=== PATIENT | female | born 1955 | race African-American/Black ===

== ENCOUNTER 2018-10-31 22:30 | Emergency (ER) | payer MEDICARE ==
[~2018-10-31] VITALS: Ht 157.5 cm; Wt 71.0 kg
[2018-11-01 00:58] LABS: BASOPHILS % 0.6 % (0.0-2.0); EOSINOPHILS % 1.9 % (0.0-5.0); HEMATOCRIT. 29.5 % (36.0-48.0); HEMOGLOBIN. 9.3 g/dL (12.0-16.0); LYMPHOCYTES % 17.4 % (20.0-50.0); MEAN CORPUSCULAR HEMOGLOBIN 20.8 pg (28.0-32.0); MEAN CORPUSCULAR VOLUME 65.7 fL (81.0-99.0); MEAN PLATELET VOLUME 8.2 fl (7.4-10.4); MONOCYTES % 7.2 % (2.0-8.0); NEUTROPHILS % 72.9 % (40.0-76.0); PLATELET 494 x1000/uL (130-400); RED BLOOD CELL COUNT 4.49 mill/uL (4.2-5.4); RED CELL DISTRIBUTION WIDTH 18.2 % (11.6-14.6)
[2018-11-01 01:03] LABS: CHLORIDE 107 mEq/L (98-107)
[2018-11-01 01:06] LABS: CLARITY URINE CLOUDY (CLEAR); COLOR URINE YELLOW (YELLOW); KETONES URINE TRACE (NEGATIVE); LEUKOCYTE ESTERASE URINE TRACE (NEGATIVE); NITRITE URINE NEGATIVE (NEGATIVE); OCCULT BLOOD URINE NEGATIVE (NEGATIVE); PH URINE 5.5 (4.5-8.0); PROTEIN URINE NEGATIVE (NEGATIVE); SPECIFIC GRAVITY URINE 1.036 (1.005-1.030)
[2018-11-01 02:39] VITALS: BP 176/89
[2018-11-01 03:11] LABS: PLATELET ESTIMATE INCREASED
== END 2018-11-01 03:07 | disposition home or self-care (01) ==
LOC: ER 22:30
DX: R55 Syncope and collapse (principal); S09.8XXA Other specified injuries of head, initial encounter; D50.9 Iron deficiency anemia, unspecified; I10 Essential (primary) hypertension; F17.210 Nicotine dependence, cigarettes, uncomplicated; R79.89 Other specified abnormal findings of blood chemistry; Z88.6 Allergy status to analgesic agent; Z88.2 Allergy status to sulfonamides; Z90.49 Acquired absence of other specified parts of digestive tract; W01.0XXA Fall on same level from slipping, tripping and stumbling without subsequent striking against object, initial encounter; Y93.89 Activity, other specified; Y92.480 Sidewalk as the place of occurrence of the external cause
CPT/HCPCS: 36415; 71045; 82962; 83880; 84484; 93005; 99284

== ENCOUNTER 2019-01-13 12:41 | Emergency (ER) | payer MEDICARE ==
[~2019-01-13] VITALS: Ht 167.6 cm; Wt 70.0 kg
[2019-01-13] MEDS ORDERED: METHYLPREDNISOLONE SOD SUCC 125 MG/2 ML VIAL IM ONE (13:30)
[2019-01-13 14:15] VITALS: BP 150/83
== END 2019-01-13 14:25 | disposition home or self-care (01) ==
LOC: ER 12:41
DX: R21 Rash and other nonspecific skin eruption (principal); I10 Essential (primary) hypertension; F17.200 Nicotine dependence, unspecified, uncomplicated; Z87.2 Personal history of diseases of the skin and subcutaneous tissue; Z88.2 Allergy status to sulfonamides; Z88.1 Allergy status to other antibiotic agents; Z88.6 Allergy status to analgesic agent; Z88.8 Allergy status to other drugs, medicaments and biological substances; Z90.49 Acquired absence of other specified parts of digestive tract
CPT/HCPCS: 99281; J2930

== ENCOUNTER 2019-07-28 18:31 | Emergency (ER) | payer MEDICARE ==
[~2019-07-28] VITALS: Ht 157.5 cm; Wt 75.0 kg
[2019-07-28 19:03] VITALS: BP 151/79
[2019-07-28] MEDS ORDERED: ACETAMINOPHEN 325MG TABLET PO ONE (22:45)
== END 2019-07-28 23:58 | disposition home or self-care (01) ==
LOC: ER 18:31
DX: M79.662 Pain in left lower leg (principal); I10 Essential (primary) hypertension; Z88.2 Allergy status to sulfonamides; Z88.1 Allergy status to other antibiotic agents; Z88.6 Allergy status to analgesic agent; Z94.9 Transplanted organ and tissue status, unspecified; Z90.49 Acquired absence of other specified parts of digestive tract; Z98.890 Other specified postprocedural states
CPT/HCPCS: 73610; 93971; 99284

== ENCOUNTER 2020-12-28 15:02 | Emergency (ER) | payer MEDICARE, MEDICAID ==
[~2020-12-28] VITALS: Ht 157.5 cm; Wt 75.0 kg
[2020-12-28 15:22] VITALS: BP 156/88
[2020-12-28] MEDS ORDERED: DOXY100T28 PO (16:28)
[2020-12-28] MEDS ORDERED: NYST15PO4 TP (16:28)
== END 2020-12-28 16:40 | disposition home or self-care (01) ==
LOC: ER 15:02
DX: L30.4 Erythema intertrigo (principal); L20.9 Atopic dermatitis, unspecified; I10 Essential (primary) hypertension; Z88.2 Allergy status to sulfonamides; Z88.6 Allergy status to analgesic agent; Z88.8 Allergy status to other drugs, medicaments and biological substances; Z98.890 Other specified postprocedural states
CPT/HCPCS: 99281; 99283

== ENCOUNTER 2022-10-01 16:07 | Emergency (ER) | payer MEDICARE, MEDICAID ==
[~2022-10-01] VITALS: Ht 157.5 cm; Wt 79.5 kg
[~2022-10-01 16:07] MED LIST: DOXY100T28 PO; NYST15PO4 TP
[2022-10-01 16:22] VITALS: BP 187/97
== END 2022-10-01 18:52 | disposition home or self-care (01) ==
LOC: ER 16:07
DX: Z53.21 Procedure and treatment not carried out due to patient leaving prior to being seen by health care provider (principal)
CPT/HCPCS: 73610; 99283

== ENCOUNTER 2025-03-06 04:11 | Emergency (ER) | payer OTHER, MEDICAID ==
[~2025-03-06] VITALS: Ht 167.6 cm; Wt 82.0 kg
[~2025-03-06 04:11] MED LIST changes: +NYST15PO13 TP; -NYST15PO4 TP
[2025-03-06 04:43] VITALS: PULSE 96; RESP 22; O2SAT 99
[2025-03-06] MEDS: ALBUTEROL (0.083%) 2.5MG/3ML NEB HHN SCH (04:43)
[2025-03-06] MEDS: IPRATROPIUM BROMIDE (0.02%) 0.5MG/2.5ML NEB HHN SCH (04:43)
[2025-03-06] MEDS: METHYLPREDNISOLONE SOD SUCC 125MG/2ML (ACT-O-VIAL) IV ONE (04:52)
[2025-03-06] MEDS: SODIUM CHLORIDE 0.9% (SEPSIS BOLUS) IV ONE (04:53)
[2025-03-06] MEDS: LEVOFLOXACIN 750MG PREMIX 150 ML IV ONE (05:03)
[2025-03-06 05:08] LABS: HEMATOCRIT. 32.1 % (36.0-48.0); HEMOGLOBIN. 9.5 g/dL (12.0-16.0); MEAN PLATELET VOLUME 9.2 fl (7.4-10.4); PLATELET 423 x1000/uL (130-400); RED BLOOD CELL COUNT 4.71 mill/uL (4.2-5.4); RED CELL DISTRIBUTION WIDTH 23.2 % (11.6-14.6)
[2025-03-06 05:16] VITALS: PULSE 93; RESP 20; O2SAT 99
[2025-03-06 05:28] LABS: CREATININE 0.9 mg/dL (0.6-1.0); UREA NITROGEN BLOOD 10 mg/dL (9-23)
[2025-03-06 05:29] LABS: TROPONIN I HIGH SENSITIVITY 17 ng/L (3.0-34)
[2025-03-06 05:30] LABS: ASPARTATE AMINOTRANSFERASE 56 IU/L (<34); BILIRUBIN DIRECT 0.1 mg/dL (<=3.0); BILIRUBIN TOTAL 0.3 mg/dL (0.1-1.0); PROTEIN TOTAL 7.9 g/dL (6.0-8.3)
[2025-03-06 05:36] LABS: INR 1.1
[2025-03-06 05:38] LABS: BAND% 1.0 % (1.0-6.0); EOSINOPHILS % MANUAL 1.0 % (0.0-5.0); LYMPHOCYTES % MANUAL 9.0 % (20.0-60.0); MONOCYTES % MANUAL 2.0 % (2.0-8.0); NEUTROPHILS % MANUAL 87.0 % (45.0-75.0)
[2025-03-06 05:39] LABS: PLATELET ESTIMATE SLIGHTLY INCREASED
[2025-03-06 05:52] LABS: CLARITY URINE CLOUDY (CLEAR); COLOR URINE YELLOW (YELLOW); GLUCOSE URINE TRACE (NEGATIVE); KETONES URINE NEGATIVE (NEGATIVE); LEUKOCYTE ESTERASE URINE 2+ (NEGATIVE); NITRITE URINE NEGATIVE (NEGATIVE); OCCULT BLOOD URINE 3+ (NEGATIVE); PH URINE 6.5 (4.5-8.0); PROTEIN URINE 3+ (NEGATIVE); SPECIFIC GRAVITY URINE 1.012 (1.005-1.030); UROBILINOGEN URINE 1.0 E.U./dL (0.2-1.0)
[2025-03-06] MEDS: CLONIDINE 0.1MG TABLET PO NR (06:54)
[2025-03-06] MEDS: HYDRALAZINE 20MG/ML VIAL IV ONE (07:45)
[2025-03-06 07:46] LABS: SQUAMOUS EPITHELIAL CELL URINE FEW /lpf (RARE/1+)
[2025-03-06 07:47] LABS: WBC URINE 0-2 /hpf (0-2)
[2025-03-06 07:48] LABS: RBC URINE 0-2 /hpf (0-2)
[2025-03-06 07:52] LABS: BACTERIA URINE 1+
[2025-03-06 08:29] VITALS: BP 176/91; PULSE 98; RESP 18; TEMP 36.9; O2SAT 99
== END 2025-03-06 08:46 | disposition short-term general hospital (02) ==
LOC: ER 04:11 → CANBEDREQ 07:35 → ER 08:46
DX: A41.9 Sepsis, unspecified organism (principal); J18.9 Pneumonia, unspecified organism; I16.0 Hypertensive urgency; K50.90 Crohn's disease, unspecified, without complications; Z88.1 Allergy status to other antibiotic agents; Z88.2 Allergy status to sulfonamides; Z88.6 Allergy status to analgesic agent; Z88.8 Allergy status to other drugs, medicaments and biological substances; Z90.49 Acquired absence of other specified parts of digestive tract; Z20.822 Contact with and (suspected) exposure to COVID-19
CPT/HCPCS: 99291; 96365; 96375; 87426; 80076; 80048; 81003; 83880; 83605; 85025; 85610; 85730; 87040; 87086; 84484; 36415; 84145; 71045; 94640; 93005; J2919; J0360; J1956; J7030; 94664; A4606